=== PATIENT | male | born 1935 | race Caucasian/White ===

== ENCOUNTER 2019-07-10 12:26 | Inpatient (IN) | payer MEDICARE, OTHER ==
[~2019-07-10] VITALS: Ht 160 cm; Wt 67.1 kg
[2019-07-10 13:06] LABS: BASOPHILS % (AUTO) 0.5 % (0.0-2.0); EOSINOPHILS # (AUTO) 0.1 K/uL (0.0-0.7); EOSINOPHILS % (AUTO) 0.6 % (0.0-7.0); HEMATOCRIT 37.8 % (36.7-47.1); HEMOGLOBIN 12.4 g/dL (12.5-16.3); LYMPHOCYTES # (AUTO) 1.6 K/uL (20.0-40.0); LYMPHOCYTES % (AUTO) 16.6 % (20.5-51.5); MEAN CORPUSCULAR HEMOGLOBIN 28.9 uug (23.8-33.4); MEAN CORPUSCULAR HGB CONC 33 g/dL (32.5-36.3); MEAN CORPUSCULAR VOLUME 88.1 fL (73.0-96.2); MONOCYTES # (AUTO) 0.6 K/uL (2.0-10.0); MONOCYTES % (AUTO) 6.7 % (0.0-11.0); NEUTROPHILS # (AUTO) 7.1 K/uL (1.8-8.9); NEUTROPHILS % (AUTO) 75.6 % (38.5-71.5); PLATELET COUNT (AUTO) 255 K/uL (152-348); RED BLOOD CELL COUNT(AUTO) 4.29 MIL/uL (4.06-5.63); WHITE BLOOD COUNT (AUTO) 9.3 K/uL (3.6-10.2)
[2019-07-10 13:14] LABS: CARBON DIOXIDE 29 mmol/L (21-32); CHLORIDE 104 mmol/L (98-107); CREATININE 0.8 mg/dL (0.6-1.3); GLUCOSE 108 mg/dL (74-106); UREA NITROGEN, BLOOD 23 mg/dL (7-18)
[2019-07-10 13:21] LABS: ALANINE AMINOTRANSFERASE 22 U/L (16-63); ALKALINE PHOSPHATASE 69 U/L (50-136); ASPARTATE AMINOTRANSFERASE 25 U/L (15-37); BILIRUBIN,DIRECT 0.1 mg/dL (0.0-0.2); BILIRUBIN,TOTAL 0.4 mg/dL (0.2-1.0); TOTAL PROTEIN, SERUM 7.2 g/dL (6.4-8.2)
[2019-07-10 13:22] LABS: ACETAMINOPHEN < 2.0 ug/mL (10-30)
[2019-07-10 14:05] LABS: *BILIRUBIN,URIN NEGATIVE (NEGATIVE); *BLOOD, URINE NEGATIVE (NEGATIVE); *CLARITY,URINE CLEAR (CLEAR); *COLOR,URINE YELLOW (YELLOW); *KETONES,URINE TRACE (NEGATIVE); *UROBILINOGEN,URINE 0.2 E.U./dl (NORMAL); LEUKOCYTE ESTERASE ,URINE NEGATIVE (NEGATIVE); NITRITE, URINE NEGATIVE (NEGATIVE); PH,URINE 6.5 (5.0-8.0); UGLUCOSE NEGATIVE (NEGATIVE)
--- NOTE | 2019-07-10 14:06 | NUR ---
PT IS IN ROOM #2B. DR VELA EVALUATED THE PT.
[2019-07-10] MEDS ORDERED: TAMS-3 PO (14:08)
[2019-07-10] MEDS ORDERED: FINA5TAB3 PO (14:08)
[2019-07-10] MEDS ORDERED: ESCI10TA PO (14:08)
[2019-07-10] MEDS ORDERED: MEMA1CAP3 PO (14:08)
[2019-07-10] MEDS ORDERED: CHOL10002 PO (14:08)
--- NOTE | 2019-07-10 14:55 | NUR ---
CRISIS FIELD SUPPORT REPRESENTATIVE AURY DODD WAS CALLED TO EVALUATE PT. DIANA IS 1 HOUR.
[2019-07-10 15:24] LABS: ETHANOL < 3 MG/DL (0-0)
[2019-07-10 15:36] LABS: *AMPHETAMINE, URINE NEGATIVE (NEGATIVE); *BARBITURATE, URINE NEGATIVE (NEGATIVE); *CANNABINOID, URINE NEGATIVE (NEGATIVE); *COCCAINE, URINE NEGATIVE (NEGATIVE); *OPIATE, URINE NEGATIVE (NEGATIVE); *PHENCYCLIDINE SCREEN,URINE NEGATIVE (NEGATIVE)
[2019-07-10] MEDS ORDERED: OLANZAPINE 5 MG TABLET PO ONE (16:30)
[2019-07-10] MEDS ORDERED: OLANZAPINE 5 MG TABLET ONE (16:31)
--- NOTE | 2019-07-10 16:58 | NUR ---
AURY DODD EVALUATED THE PT. PT IS ON H0LD GRAVELY DISABLED.
[2019-07-10 18:30] VITALS: BP 131/77
[2019-07-10 18:45] VITALS: BP 131/77
--- NOTE | 2019-07-10 18:48 | NUR ---
REPORT WAS GIVEN TO RN MHU. PT WAS TRANSFERED TO ROOM #145C.
[2019-07-10] MEDS ORDERED: MAG HYDROX/AL HYDROX/SIMETH 30 ML LIQUID UDC PO PRN (19:00)
[2019-07-10] MEDS ORDERED: MAGNESIUM HYDROXIDE 30 ML LIQUID UDC PO PRN (19:00)
[2019-07-10] MEDS ORDERED: TEMAZEPAM 7.5 MG CAPSULE PO PRN (19:00)
[2019-07-10] MEDS ORDERED: ACETAMINOPHEN 325 MG TABLET PO PRN (19:00)
[2019-07-10 20:21] VITALS: BP 110/74
--- NOTE | 2019-07-10 23:00 | NUR ---
received to care, from the emergency room, on a 72 hour hold for gravely disabled, coming from home. 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 has no friends, family, or support system. he went to see his private MD (Dr Liza Peralta), who had referred him here, as he appeared not to be able to live alone, or provide for his own needs and ADLs, anymore. upon evaluation by our crisis team, he appeared confused, making references to going to the supreme court to get his money, so he can return to [place], where he left 53 years ago. his wallet was full of torn and barely readable numbers. he had no plan for self care. according to a former landlord, he has refused any form of high school social studies teacher, including adult day care. upon arrival on the unit, he was uncooperative with interview. refused any body assessment, shower, or interview questions. he was physically resistive to give up several items of contraband, until hospital security arrived. he was given a snack, and went to bed. declined any PRN medications. as of 0, he appears asleep. no distress noted.
--- NOTE | 2019-07-11 06:13 | NUR ---
slept 6.75 hours, total. continues to sleep. no distress noted.
[2019-07-11 07:30] VITALS: BP 150/70
[2019-07-11] MEDS: CHOLECALCIFEROL 1,000 UNIT TABLET PO SCH (09:46)
[2019-07-11] MEDS: FINASTERIDE 5 MG TABLET PO SCH (09:46)
--- NOTE | 2019-07-11 10:57 | NUR ---
Social Work Note/Initial Discharge Planning: Patient currently resides at [address] [place] [address];([phone]) and resides with Radha ([phone]), Chava ([phone]), Isaura ([phone]). Per Collette ([phone]) stated that Radha is the home automotive instructor. Per Collette, she stated that they are all family friends and that they are involved in patients care. Per Collette, she reported that patient is welcomed back upon discharge and that they are able to take care of patient. instrument worker will work with the patient and the MD regarding appropriate discharge planning. instrument worker will form a safe and proper discharge.
--- NOTE | 2019-07-11 10:59 | NUR ---
Social Work Note/Family Contact: community mental health social worker spoke with family friend Collette ([phone]) and discussed patients discharge plan and treatment plan. Per Collette, she stated that patient used to live with her and her mother 6 months ago but re-located to friends house Radha who is the warehouse technician of house ([phone]) and that other family friends live in that house Chava ([phone])Isaura ([phone]). Per Collette, she stated that they take care of patient and that he is welcomed back to the house upon discharge. This remote mortgage underwriter contacted Radha ([phone]) but the number did not exist. This remote mortgage underwriter contacted Isaura ([phone]) and didn't have a voicemail. This remote mortgage underwriter contacted Osmin ([phone]) and left a voicemail. Per Collette, she stated that patient does not have any family members and that his siblings live in [place].
--- NOTE | 2019-07-11 14:58 | NUR ---
Social Work Note/Individual Therapy: muffle worker met with patient for brief counseling. Patient did not want to speak to this conventional underwriter and was verbally abusive. muffle worker will follow up with patient.
[2019-07-11] MEDS: ESCITALOPRAM OXALATE 10 MG TABLET PO SCH (15:27)
[2019-07-11] MEDS: QUETIAPINE FUMARATE 25 MG TABLET PO SCH ×2 (15:27→21:07)
[2019-07-11 16:00] VITALS: BP 152/86
[2019-07-11 20:22] VITALS: BP 154/74
[2019-07-11] MEDS: TAMSULOSIN HCL 0.4 MG CAP.SR.24H PO SCH (21:07)
--- NOTE | 2019-07-11 22:00 | NUR ---
received to care, up in w/c, anxious, but pleasant upon approach. states that he doesn't belong here. that his nut cracker sent him here, by accident. compliant with medications and staff direction. as of 2199, he appears to be asleep. no distress noted.
--- NOTE | 2019-07-12 06:00 | NUR ---
slept 5.5 hours, total. continues to sleep. no distress noted.
[2019-07-12 07:30] VITALS: BP 154/69
--- NOTE | 2019-07-12 08:46 | NUR ---
Social Work Note/Family Contact: automobile body worker spoke with patients family friend Maria Del Rosario ([phone]) who stated that patient used to live her family and that he moved to her friends house. Per Maria Del Rosario, she believes that patient needs a SNF and that it would be the best option for him because he has not been compliant to his medications in the past. automobile body worker will discuss with the MD.
[2019-07-12] MEDS: CHOLECALCIFEROL 1,000 UNIT TABLET PO SCH (10:04)
[2019-07-12] MEDS: ESCITALOPRAM OXALATE 10 MG TABLET PO SCH (10:05)
[2019-07-12] MEDS: FINASTERIDE 5 MG TABLET PO SCH (10:05)
[2019-07-12] MEDS: QUETIAPINE FUMARATE 25 MG TABLET PO SCH ×2 (10:05→20:03)
[2019-07-12] MEDS ORDERED: CLONIDINE HCL 0.1 MG TABLET PO PRN (11:45)
--- NOTE | 2019-07-12 12:21 | NUR ---
Social Work Note/Coordination of Care: adoption social worker contacted [facility] and spoke with admin coordinator Jose ([phone]) and faxed patients psychiatric H & P notes and progress notes. Per Jose, he will contact this health underwriter to see if patient is welcomed.
--- NOTE | 2019-07-12 14:53 | NUR ---
0800 patient remains resistent and dis organized with no direction or understanding frequent redirection on unit continue to monitor for safety
--- NOTE | 2019-07-12 15:14 | NUR ---
Social Work Note/Coordination of Care: workers compensation consultant contacted [facility] and spoke with admin coordinator Jose ([phone]) and stated that they are unable to take patient due to not having beds.
--- NOTE | 2019-07-12 15:45 | NUR ---
Social Work Note/Coordination of Care: carnival worker spoke to admin coordinator Soledad ([phone]) [facility] and sent patients H & P psychiatric notes and progress notes and stated that at the moment they do not have any beds.
--- NOTE | 2019-07-12 15:46 | NUR ---
Social Work Note/Coordination of Care: agriculture worker contacted Rose Marie ([phone]) from [facility] and sent patients H & P psychiatric notes and progress notes. Per Rose Marie, she will get back to this junior underwriter if patient is accepted.
--- NOTE | 2019-07-12 16:17 | NUR ---
Social Work Note/Coordination of Care: harvest worker contacted Rose Marie ([phone]) from [facility] and sent patients H & P psychiatric notes and progress notes. Per Rose Marie, she accepted patient.
[2019-07-12 16:30] VITALS: BP 127/64
--- NOTE | 2019-07-12 18:36 | NUR ---
Gps/Fish Straightener- Had been cooperative with staff, redirectable., ind. with his wheel propulsion
[2019-07-12] MEDS: TAMSULOSIN HCL 0.4 MG CAP.SR.24H PO SCH (20:03)
[2019-07-12 20:48] VITALS: BP 128/65
--- NOTE | 2019-07-12 22:00 | NUR ---
received to care, up in w/c, anxious, but pleasant upon approach. states that he wants to leave. has poor insight. reality orientation was attempted, but he is not receptive, and remains disorganized, and paranoid. compliant with medications and staff direction. as of 2199, he appears to be sleeping intermittently. no distress noted.
[2019-07-12] MEDS: LORAZEPAM 1 MG TABLET PO PRN (22:39)
--- NOTE | 2019-07-13 06:00 | NUR ---
slept 5.45 hours, total. continues to sleep. no distress noted.
[2019-07-13 08:01] VITALS: BP 127/72
--- NOTE | 2019-07-13 08:20 | NUR ---
Social Work Note/Family Contact: workers compensation examiner spoke with patients family friend Maria Del Rosario ([phone]) and stated that patient will discharge to [facility]. Per Maria Del Rosario, she was agreeable with this plan.
[2019-07-13] MEDS: QUETIAPINE FUMARATE 25 MG TABLET PO SCH (09:51)
[2019-07-13] MEDS: FINASTERIDE 5 MG TABLET PO SCH (09:51)
[2019-07-13] MEDS: CHOLECALCIFEROL 1,000 UNIT TABLET PO SCH (09:51)
[2019-07-13] MEDS: ESCITALOPRAM OXALATE 10 MG TABLET PO SCH (09:51)
--- NOTE | 2019-07-13 10:24 | NUR ---
Gps/Warranty Coordinator- Encouraged to shower, crying spells, no tears, weinning, wants all his clothes as well as shoes, needed redirections and prompting. Wheel self around with wheel chair, transfers self ind.
--- NOTE | 2019-07-13 14:16 | NUR ---
Social Work Note/Individual Therapy: straightedge worker met with patient for brief counseling. Patient continuously expressed that he wants to go home and leave the hospital. This press writer had to calm patient down by educating him that he is at the MHU unit.
[2019-07-13 16:31] VITALS: BP 129/50
[2019-07-13] MEDS: TAMSULOSIN HCL 0.4 MG CAP.SR.24H PO SCH (21:00)
[2019-07-14 07:30] VITALS: BP 101/68
[2019-07-14] MEDS: CHOLECALCIFEROL 1,000 UNIT TABLET PO SCH (09:53)
[2019-07-14] MEDS: ESCITALOPRAM OXALATE 10 MG TABLET PO SCH (09:53)
[2019-07-14] MEDS: QUETIAPINE FUMARATE 25 MG TABLET PO SCH ×3 (09:53→17:00)
[2019-07-14] MEDS: FINASTERIDE 5 MG TABLET PO SCH (09:53)
[2019-07-14 16:00] VITALS: BP 120/50
--- NOTE | 2019-07-14 17:30 | NUR ---
Gps/Finish Production Manager- Remains up in his wheel chair, refused pm meds., when offered, speech incoherent, claimed Nurses giving him 100 meds already he needs to leave this plan , was irritable labile mood. He thinks staff putting something in his meals. Redirected, reviewed safety and reason why he is here, pt. does not want to listen
[2019-07-14] MEDS: TAMSULOSIN HCL 0.4 MG CAP.SR.24H PO SCH (21:00)
[2019-07-15 07:30] VITALS: BP 131/55
[2019-07-15] MEDS: QUETIAPINE FUMARATE 25 MG TABLET PO SCH ×3 (09:05→16:44)
[2019-07-15] MEDS: CHOLECALCIFEROL 1,000 UNIT TABLET PO SCH (09:05)
[2019-07-15] MEDS: ESCITALOPRAM OXALATE 10 MG TABLET PO SCH (09:05)
[2019-07-15] MEDS: FINASTERIDE 5 MG TABLET PO SCH (09:05)
--- NOTE | 2019-07-15 14:47 | NUR ---
Gps/Automobile Mechanic Motor- remains up on his wheel chair, wheel self around, encouraged attending his group therapy, argumentative , easily gets irritable,
[2019-07-15 15:21] VITALS: BP 114/53
[2019-07-15] MEDS: TAMSULOSIN HCL 0.4 MG CAP.SR.24H PO SCH (20:03)
[2019-07-15] MEDS: LORAZEPAM 1 MG TABLET PO PRN (20:03)
[2019-07-16] MEDS: QUETIAPINE FUMARATE 25 MG TABLET PO SCH ×3 (10:41→16:59)
[2019-07-16] MEDS: CHOLECALCIFEROL 1,000 UNIT TABLET PO SCH (10:41)
[2019-07-16] MEDS: ESCITALOPRAM OXALATE 10 MG TABLET PO SCH (10:41)
[2019-07-16] MEDS: FINASTERIDE 5 MG TABLET PO SCH (10:41)
[2019-07-16 15:36] VITALS: BP 115/93
[2019-07-16] MEDS: LORAZEPAM 1 MG TABLET PO PRN (19:31)
[2019-07-16] MEDS: TAMSULOSIN HCL 0.4 MG CAP.SR.24H PO SCH (20:10)
[2019-07-17 07:46] LABS: BASOPHILS % (AUTO) 0.6 % (0.0-2.0); EOSINOPHILS # (AUTO) 0.2 K/uL (0.0-0.7); EOSINOPHILS % (AUTO) 2.8 % (0.0-7.0); HEMOGLOBIN 12.1 g/dL (12.5-16.3); LYMPHOCYTES # (AUTO) 1.9 K/uL (20.0-40.0); LYMPHOCYTES % (AUTO) 24.4 % (20.5-51.5); MEAN CORPUSCULAR HEMOGLOBIN 28.8 uug (23.8-33.4); MEAN CORPUSCULAR HGB CONC 33 g/dL (32.5-36.3); MEAN CORPUSCULAR VOLUME 88.5 fL (73.0-96.2); MONOCYTES # (AUTO) 0.9 K/uL (2.0-10.0); MONOCYTES % (AUTO) 12.2 % (0.0-11.0); NEUTROPHILS # (AUTO) 4.6 K/uL (1.8-8.9); PLATELET COUNT (AUTO) 240 K/uL (152-348); RED BLOOD CELL COUNT(AUTO) 4.19 MIL/uL (4.06-5.63); WHITE BLOOD COUNT (AUTO) 7.7 K/uL (3.6-10.2)
[2019-07-17 08:00] VITALS: BP 122/63
[2019-07-17 08:07] LABS: CREATININE 0.7 mg/dL (0.6-1.3); POTASSIUM 3.7 mmol/L (3.5-5.1)
[2019-07-17] MEDS: ESCITALOPRAM OXALATE 10 MG TABLET PO SCH (08:58)
[2019-07-17] MEDS: FINASTERIDE 5 MG TABLET PO SCH (08:58)
[2019-07-17] MEDS: CHOLECALCIFEROL 1,000 UNIT TABLET PO SCH (08:59)
[2019-07-17] MEDS: QUETIAPINE FUMARATE 25 MG TABLET PO SCH ×3 (08:59→16:46)
--- NOTE | 2019-07-17 13:23 | NUR ---
Social Work Note/Firearms Report: Head Of Music completed and submitted a [facility] firearms report for 5250 grave disability certification. A copy of report has been placed in patient chart.
--- NOTE | 2019-07-17 14:46 | NUR ---
Social Work Note/Family Contact: overhead worker contacted patients friend Maria Del Rosario ([phone]) and informed patients discharge plan. Per Maria Del Rosario, she was agreeable.
[2019-07-17 15:00] VITALS: BP 122/63
--- NOTE | 2019-07-17 15:30 | NUR ---
Social Work Note/Individual Therapy: clerical production worker met with patient for brief counseling. Patient presented with confusion and stated that he wants to "find a job". clerical production worker provided emotional support.
--- NOTE | 2019-07-17 15:45 | NUR ---
Social Work Note/Substance Abuse Intervention: Patient was provided with a brief substance abuse intervention and referred to [facility] , [facility] , and [facility] .
[2019-07-17] MEDS: LORAZEPAM 1 MG TABLET PO PRN (19:42)
[2019-07-17] MEDS: TAMSULOSIN HCL 0.4 MG CAP.SR.24H PO SCH (20:03)
[2019-07-17 22:00] VITALS: BP 126/60
[2019-07-18 07:30] VITALS: BP 142/65
--- NOTE | 2019-07-18 08:04 | NUR ---
Social Work Note/Discharge: Patient will be discharged to detention facility to [facility] [address] [place] [address]; ([phone]) via Ambulance transportation at 12:00pm. Scale Attendant spoke with Micheline, Merchandising Execution Associate at [facility] ([phone]) who stated patient will be accepted at facility today. Patient is alert and oriented x1-2, and is not able to plan for self-care at this time, but is willing to accept care provided for her at the facility. Patient denies any suicidal or homicidal ideations. Patient is aware and agreeable with discharge plans. Patients friend Maria Del Rosario, ([phone]) is aware and agreeable with discharge plans. Patient will continue to follow-up with her (psychiatrist) Dr. Berger and (manager reading) Dr. Michele at [facility] to discuss smoking cessation and address substance abuse dependency. Patient was provided with outpatient mental health resources to [facility] , and the [place] [facility] . Patient was provided with a brief substance abuse intervention and referred to [facility] , [facility] , and [facility] . Patient will follow-up at the center. Patient presents with euthymic mood and congruent affect.
[2019-07-18] MEDS: CHOLECALCIFEROL 1,000 UNIT TABLET PO SCH (09:17)
[2019-07-18] MEDS: FINASTERIDE 5 MG TABLET PO SCH (09:17)
[2019-07-18] MEDS: ESCITALOPRAM OXALATE 10 MG TABLET PO SCH (09:17)
[2019-07-18] MEDS: QUETIAPINE FUMARATE 25 MG TABLET PO SCH ×2 (09:17→12:40)
--- NOTE | 2019-07-18 14:20 | NUR ---
Patient is being discharged to [facility]. Pt is aware of the discharge and willing to go. VS are stable, no distress. All belongings returned, including valuables and medications. Report was called and given to FELISA Dan.
== END 2019-07-18 13:25 | DRG 885 ==
LOC: ER 12:30 → GPS 17:47
PROVIDERS: ADMIT Psychiatry & Neurology Psychiatry; ATTEND Nurse Practitioner Acute Care
DX: F33.3 Major depressive disorder, recurrent, severe with psychotic symptoms (principal); G93.41 Metabolic encephalopathy; D68.59 Other primary thrombophilia; L01.00 Impetigo, unspecified; N40.0 Benign prostatic hyperplasia without lower urinary tract symptoms; M62.84 Sarcopenia; R79.89 Other specified abnormal findings of blood chemistry; Z74.09 Other reduced mobility; F03.90 Unspecified dementia, unspecified severity, without behavioral disturbance, psychotic disturbance, mood disturbance, and anxiety; R73.9 Hyperglycemia, unspecified
CPT/HCPCS: 36415; 71045; 80307; 85025; 93005; A4663; G0480; G0480-TC